=== PATIENT | female | born 1975 | race Caucasian/White ===

== ENCOUNTER 2017-09-15 10:52 | Observation (INO) | payer SELFPAY ==
--- NOTE | 2017-09-15 11:56 | PDOC ---
History of Present Illness - General Chief Complaint: Revisit, Lab Variance Stated Complaint: REVISIT/ LAB VARIANCE Time Seen by Provider: 09/15/17 11:46 - History of Present Illness Initial Comments: 09/15/17 12:25 The patient is a 42 year old female with a history of anemia and uterine fibroids who presents for evaluation of anemia. The patient reports visiting her PCP yesterday and had blood work done. She states that they called her today and told her to present to the ER for a blood transfusion due to anemia. The patient has had multiple transfusions in the past due to anemia. She states that she has very heavy menses due to her uterine fibroids with her LMP on 08/20 which was very heavy as per usual. She states that the last blood work she had done prior to yesterday was over 1 year ago when she was evaluated by her manager clinical informatics physician. She currently only complains of some mild generalized weakness and SOB with exertion, but denies any fevers, chills, chest pain, abdominal pain, or changes with urination or bowel movements. Past History - Past Medical History Allergies/Adverse Reactions: Allergies Allergy/AdvReac Type Severity Reaction Status Date / Time No Known Allergies Allergy Verified 09/15/17 11:02 Home Medications: Ambulatory Orders Ferrous Sulfate [Feosol] 325 mg PO BID #60 ud 03/25/16 Anemia: Yes COPD: No - Reproductive History Uterine Fibroids: Yes - Suicide/Smoking/Psychosocial Hx Smoking History: Never smoked Have you smoked in the past 12 months: No Hx Alcohol Use: Yes (SOCIAL) Drug/Substance Use Hx: No Substance Use Type: None Hx Substance Use Treatment: No Review of Systems - Review of Systems Comments:: 09/15/17 12:30 Constitutional: Generalized fatigue. No fevers, chills, malaise HEENT: No Rhinorrhea, nasal congestion, Cardiovascular: No chest pain, syncope, palpitations, lightheadedness Respiratory: SOB. No Cough, Hemoptysis, Gastrointestinal: No Abdominal pain, Nausea, Vomiting, Constipation, Diarrhea, Melena Genitourinary: No Dysuria, Frequency, Urgency, Hesitancy, Hematuria, Flank pain Musculoskeletal: No Myalgia, arthralgia Skin: No rashes, bruising, pallor Neurologic: No Headache, Dizziness, Numbness, or Tingling Psychiatric: No Hallucinations. No SI or HI *Physical Exam - Vital Signs Last Vital Signs Temp Pulse Resp BP Pulse Ox 99.1 F 81 20 109/65 98 09/15/17 10:58 09/15/17 10:58 09/15/17 10:58 09/15/17 10:58 09/15/17 10:58 - Physical Exam Comments: 09/15/17 12:30 General Appearance: Nourished. No Apparent Distress HEENT: EOMI, SOFÍA. No Pharyngeal Erythema, Tonsillar Exudate, Tonsillar Erythema Neck: No Cervical Lymphadenopathy Respiratory/Chest: Lungs Clear, Normal Breath Sounds. No Crackles, Rales, Rhonchi, Wheezing Cardiovascular: Regular Rhythm, Regular Rate. No Murmur, Gallops, Rubs Gastrointestinal/Abdominal: Normal Bowel Sounds, Soft. No Guarding, Rebound, Tenderness Musculoskeletal: No CVA Tenderness Extremity: Normal Capillary Refill Integumentary: Normal Color, Dry, Warm Neurologic: Fully Oriented, Alert, Normal Mood/Affect, Normal Response, ED Treatment Course - LABORATORY CBC & Chemistry Diagram: 09/15/17 12:09 09/15/17 12:09 Medical Decision Making - Medical Decision Making 09/15/17 12:31 The patient is a 42 year old female with a history of anemia and uterine fibroids who presents for evaluation of anemia. Given the patient's history of anemia due to uterine fibroids as well as recent heavy menses, it is likely the patient is anemic due to her heave menses. She is not complaining of any other symptoms besides mild generalized weakness and SOB with exertion and we have a good explanation for her anemia. We will obtain a cbc, cmp, type and screen, coags to evaluate here in the ED. We will continue to monitor and reassess. 09/15/17 13:24 CBC demonstrates a hgb of 6.2. CMP, UA, coags are unremarkable here in the ED. The patient will require admission for further management given her symptomatic anemia and hgb of 6.2. We will order 1 U of PRBC for transfusion and contact the hospitalist team for admission. 09/15/17 14:18 We discussed with the hospitalist team who accepted the patient for admission. *DC/Admit/Observation/Transfer Diagnosis at time of Disposition: Symptomatic anemia - Discharge Dispostion Condition at time of disposition: Stable Admit: Yes
[2017-09-15 12:21] LABS: BASOPHIL 1.8 % (0-2.0); EOSINOPHIL 1.1 % (0-4.5); MCHC 28.7 g/dl (32.0-36.0); MEAN CELL VOLUME 56.8 fl (80-96); MEAN PLT VOLUME 8.8 fl (7.5-11.1); NEUTROPHILS 64.2 % (42.8-82.8); PLATELET COUNT 363 K/MM3 (134-434); RDW 21.4 % (11.6-15.6); WHITE BLOOD COUNT 5.5 K/mm3 (4.0-10.0)
[2017-09-15 12:30] LABS: URINE APPEARANCE CLOUDY; URINE BILIRUBIN NEGATIVE (NEGATIVE); URINE BLOOD NEGATIVE (NEGATIVE); URINE COLOR YELLOW; URINE GLUCOSE (UA) NEGATIVE (NEGATIVE); URINE KETONE NEGATIVE (NEGATIVE); URINE NITRITE NEGATIVE (NEGATIVE); URINE UROBILINOGEN NEGATIVE mg/dL (0.2-1.0)
--- NOTE | 2017-09-15 12:32 | PDOC ---
Attending Attestation - Resident Resident Name: Channing Au - ED Attending Attestation I have performed the following: I have examined & evaluated the patient, The case was reviewed & discussed with the resident, I agree w/resident's findings & plan, Exceptions are as noted - HPI HPI: 09/15/17 13:22 42y F fibroids, anemia, presents with anemia. The pt had blood work done as an outpatient showing anemi with hbg of 6 and was told to come to [facility]. [facility] pt notes she has been feeling generally weak, especially when going up stairs with mild sob. The pt notes several transfusions inthe past. Pt denies any cp, abd pain, current vag bleeeding, any diarrhea/melena/bpr. Pt currently on iron. on exam pt in no distress abd soft cardiac exam shows regular rate, no m/r/g pulm exam clear to ascultation pt noted anemic to 6.[address] pt on observation status for transfusion under hospitalist service - Physicial Exam PE: 09/15/17 13:23 see above - Medical Decision Making 09/15/17 13:23 see above Heart Score/ECG Review - ECG Impressions Comment:: 09/15/17 13:24 Twelve-lead EKG was performed and reviewed by me. There is normal sinus rhythm with a normal rate. Rate of 72 The axis is normal. The intervals are normal. There is normal R wave progression There are no ST or T wave abnormalities. Impression: Normal twelve-lead EKG
[2017-09-15 12:37] LABS: URINE PROTEIN 1+ (NEGATIVE)
[2017-09-15 12:38] LABS: URINE BACTERIA RARE /hpf (NONE SEEN); URINE MUCUS RARE; URINE RBC 1; URINE WBC 11
[2017-09-15 12:40] LABS: INR 0.98 (0.82-1.09); PROTHROMBIN TIME (PATIENT) 11.1 SEC (9.98-11.88)
[2017-09-15 12:42] LABS: ACTIVATED PTT 26.3 SECONDS (26.9-34.4)
[2017-09-15 12:48] LABS: MCH 16.3 pg (25.7-33.7)
[2017-09-15 12:50] LABS: ALBUMIN 3.6 g/dl (3.4-5.0); ANION GAP 8 (8-16); BILIRUBIN,TOTAL 0.3 mg/dL (0.2-1.0); CALCIUM 8.3 mg/dL (8.5-10.1); CO2 22 mmol/L (21-32); CREATININE 0.6 mg/dL (0.55-1.02); GLUCOSE,RANDOM 102 mg/dL (74-106); SGOT/AST 24 U/L (15-37); SGPT/ALT 26 U/L (12-78); TOT PROT 7.2 g/dl (6.4-8.2)
[2017-09-15 12:51] LABS: ALK PHOS 57 U/L (45-117)
[2017-09-15 14:06] LABS: ANISOCYTOSIS 3+; HYPOCHROMIA 4+; MICROCYTOSIS 3+; TARGET CELLS 3+
--- NOTE | 2017-09-15 14:54 | HP ---
CHIEF COMPLAINT:weakness PCP:[facility]. HISTORY OF PRESENT ILLNESS: 42 yo F with significant PMHx of anemia 2/2 uterine fibroids who presents for evaluation of anemia. She had recent blood work done and recieved a call yesterday that she was anemic with Hgb of 6.0. She has been feeling weak and fatigued for the past week and also report dysnea on exertion. The patient has had multiple transfusions in the past due to anemia most recently March 2016. She last had her fibroids imaged by US in April of 2016. She reports having seen a SALES RESEARCH ANALYST but was told to continue with iron supplementation. She states that she has very heavy menses due to her uterine fibroids with her LMP on 08/20 which was very heavy, soaking >7 heavy pads/day. Denies any CP,GUZMAN, fevers, chills, chest pain, abdominal pain, or changes with urination or bowel movements. ER course was notable for: (1)CBC shows Hgb 6.2 (2)EKG shows NSR with RBB (3)Chest xray shows no acute pathology. Recent Travel:denies PAST MEDICAL HISTORY: uterine fibroids and symptomatic anemia. PAST SURGICAL HISTORY: tubal ligation. Social History: Smoking:never Alcohol:socially Drugs: denies Family History: Allergies No Known Allergies Allergy (Verified 09/15/17 11:02) HOME MEDICATIONS: Home Medications Medication Instructions Recorded Ferrous Sulfate [Feosol] 325 mg PO BID #60 ud 03/25/16 REVIEW OF SYSTEMS CONSTITUTIONAL: generalized weakness Absent: fever, chills, diaphoresis, , malaise, loss of appetite, weight change HEENT: Absent: rhinorrhea, nasal congestion, throat pain, throat swelling, difficulty swallowing, mouth swelling, ear pain, eye pain, visual changes CARDIOVASCULAR: Absent: chest pain, syncope, palpitations, irregular heart rate, lightheadedness , peripheral edema RESPIRATORY: dyspnea with exertion Absent: cough, shortness of breath, orthopnea, wheezing, stridor, hemoptysis GASTROINTESTINAL: Absent: abdominal pain, abdominal distension, nausea, vomiting, diarrhea, constipation, melena, hematochezia GENITOURINARY: Absent: dysuria, frequency, urgency, hesitancy, hematuria, flank pain, genital pain MUSCULOSKELETAL: Absent: myalgia, arthralgia, joint swelling, back pain, neck pain SKIN: Absent: rash, itching, pallor HEMATOLOGIC/IMMUNOLOGIC: Absent: easy bleeding, easy bruising, lymphadenopathy, frequent infections ENDOCRINE: Absent: unexplained weight gain, unexplained weight loss, heat intolerance, cold intolerance NEUROLOGIC: Absent: headache, focal weakness or paresthesias, dizziness, unsteady gait, seizure, mental status changes, bladder or bowel incontinence PSYCHIATRIC: Absent: anxiety, depression, suicidal or homicidal ideation, hallucinations. PHYSICAL EXAMINATION GENERAL: AAOx3, NAD HEAD: NC/AT EYES:PERRLA,EOMI, sclera anicteric, conjunctiva clear. No lid lag. EARS, NOSE, THROAT: dry mucous membranes. NECK: supple, No JVD LUNGS: CTAB. No wheezes, and no crackles. No accessory muscle use. HEART: RRR, normal S1 and S2 No M/G/R ABDOMEN: Soft, NT/ND, normoactive bowel sounds, no guarding, no rebound, no masses. No hepatomegaly or splenomegaly. MUSCULOSKELETAL: Normal range of motion at all joints. No bony deformities or tenderness. No CVA tenderness. UPPER EXTREMITIES: 2+ pulses, warm, well-perfused. No cyanosis. No clubbing. No peripheral edema. LOWER EXTREMITIES: 2+ pulses, warm, well-perfused. No calf tenderness. No peripheral edema. NEUROLOGICAL: Cranial nerves II-XII intact. Normal speech. PSYCHIATRIC: Cooperative. Good eye contact. Appropriate mood and affect. SKIN: Warm, dry, normal turgor, no rashes or lesions noted, normal capillary refill. ASSESSMENT/PLAN: 42 year old female with a history of anemia and uterine fibroids who presents for evaluation of anemia will be admitted to Med/surg for symptomatic anemia requiring multiple blood transfusions. Problem List - Problem (1) Symptomatic anemia Assessment/Plan: * Most likely secondary to chronic blood loss from fibroids. * Will order 2 units of PRBC's * Repeat CBC after second unit * Monitor for transfusion reaction or signs of overload. * Continue Ferrous sulfate supplementation. * Transvaginal US to assess fibroids. Visit type - Emergency Visit Emergency Visit: Yes ED Registration Date: 09/15/17 Care time: The patient presented to the Emergency Department on the above date and was hospitalized for further evaluation of their emergent condition. - New Patient This patient is new to me today: Yes Date on this admission: 09/15/17 - Critical Care Critical Care patient: No
--- NOTE | 2017-09-15 15:58 | PN ---
Teaching Attending Note Name of Resident: Manas Contreras ATTENDING PHYSICIAN STATEMENT I saw and evaluated the patient. I reviewed the resident's note and discussed the case with the resident. I agree with the resident's findings and plan as documented. SUBJECTIVE:42yo F with PMH fibroids and anemia was sent by PMD after routing labs showing anemia. Reports Hgb at 6. states that she has been feeling dyspnic on exertion and fatigued for the past few weeks. LMP 10/ and was heavier than usual using "many many" pads during the day and at least 2 ultra absorbent ones at night. no longer menstruating. was told she had fibroids that was not a surgical candidate. has not seen RETURNER since 04/2016. and had it last imaged at that time. denies CP, cough, fever, chills, N/V/C/D, orthopnea, pedal edema, melena, BRBPR or hemoptysis Never had colonoscopy OBJECTIVE: Last Vital Signs Temp Pulse Resp BP Pulse Ox 98.3 F 61 18 100/61 100 09/15/17 15:41 09/15/17 15:41 09/15/17 15:41 09/15/17 15:41 09/15/17 15:41 General NAD CV S1 S2 RRR no murmur/rub/gallop Lungs CTA B/L no wheezing/rales/rhonchi Abdomen +suprapubic tenderness no rebound or guarding, soft Extremities no pedal edema ASSESSMENT AND PLAN: 42yo F wtih PMH fibroids presented to the ER with shortness of breath and found to be anemic 1. Symptomatic anemia- medicine admission. likely due to menorrhagia. will transfuse 2 units PRBC and repeat CBC. TV u/s to evaluate fibroids. check iron studies. 2. DVT ppx- EAM. hold pharamcologic anticoagulation
[2017-09-15 19:40] VITALS: BMI 23.1
[2017-09-15 20:02] LABS: URINE LEUK ESTERASE Negative (NEGATIVE)
[2017-09-15] MEDS: FERROUS SO4 325 MG TABLET (FP) PO SCH (21:16)
[2017-09-16 07:24] LABS: BASOPHIL 1.5 % (0-2.0); EOSINOPHIL 2.1 % (0-4.5); MCHC 30.3 g/dl (32.0-36.0); MEAN CELL VOLUME 61.9 fl (80-96); MEAN PLT VOLUME 9.1 fl (7.5-11.1); NEUTROPHILS 63.2 % (42.8-82.8); PLATELET COUNT 348 K/MM3 (134-434); RDW 27.3 % (11.6-15.6); WHITE BLOOD COUNT 5.7 K/mm3 (4.0-10.0)
--- NOTE | 2017-09-16 07:27 | PN ---
Physical Exam: SUBJECTIVE: Patient seen and examined. Did well last night. No events. VSS. s/p 2u PRBC. Denies fevers, chills, CP, SOB. States she was seen by her nitrogen operator last year, who stated that she "did not need" surgery because her fibroids were not large enough for surgery. OBJECTIVE: Vital Signs Period Temp Pulse Resp BP Sys/Parikh Pulse Ox Last 24 Hr 98.1 F-98.5 F 61-78 16-21 100-109/54-61 96-100 GEN: AAOx3, NAD, Lying comfortably HEENT: PERRLA, EOMi CV: S1, S2, RRR, no murmur LUNG: CTABL ABD: Soft, TTP to suprapubic region, ND MSK: No edema, no erythema NEURO: Sensation and MSK intact, 5/5 throughout Laboratory Results - last 24 hr 09/15/17 20:51 Ferritin 1.849 L Active Medications Generic Name Dose Route Start Last Admin Trade Name Freq PRN Reason Stop Dose Admin Ferrous Sulfate 325 mg 09/15/17 22:00 09/15/17 21:16 Feosol - PO 325 mg BID FREEMAN Administration ASSESSMENT/PLAN: 42yo F wtih PMH of anemia 2/2 uterine fibroids, multiple blood transfusions in past, presented to her PMD w/ SOB and fatigue, sent to the ER due to Hgb 6.2 # Symptomatic Anemia Improved to Hgb 8.5 after 2u PRBC, 2/2 menorrhagia from uterine fibroids, not menstruating now, s/p 2u PRBC, transvaginal U/S to evaluate, has low ferritin even on Fe supplements # FEN no IVF, elec wnl, regular diet # PPx SCDs, hold pharmacological anticoag, no GI needed, PT not needed # Dispo Can d/c today, needs HEREDITARY CANCER PROGRAM COORDINATOR outpatient, needs CBC and iron panel as outpatient d/w Dr Tati Cosby MD - pGY1 Internal Medicine Visit type - Emergency Visit Emergency Visit: No - New Patient This patient is new to me today: No - Critical Care Critical Care patient: No - Discharge Referral Referred to [facility] Med P.C.: No
[2017-09-16 07:40] LABS: MCH 18.8 pg (25.7-33.7)
[2017-09-16 08:07] LABS: ALBUMIN 3.2 g/dl (3.4-5.0); ANION GAP 10 (8-16); BILIRUBIN,TOTAL 1.1 mg/dL (0.2-1.0); CALCIUM 7.5 mg/dL (8.5-10.1); CO2 21 mmol/L (21-32); CREATININE 0.6 mg/dL (0.55-1.02); GLUCOSE,RANDOM 82 mg/dL (74-106); MAGNESIUM 2.2 mg/dL (1.8-2.4); SGOT/AST 17 U/L (15-37); SGPT/ALT 20 U/L (12-78); TOT PROT 6.6 g/dl (6.4-8.2)
[2017-09-16 08:08] LABS: ALK PHOS 55 U/L (45-117)
[2017-09-16] MEDS: FERROUS SO4 325 MG TABLET (FP) PO SCH (09:18)
--- NOTE | 2017-09-16 11:56 | DS ---
Physical Exam: SUBJECTIVE: Patient seen and examined. Did well last night. No events. VSS. s/p 2u PRBC. Denies fevers, chills, CP, SOB. OBJECTIVE: Vital Signs Period Temp Pulse Resp BP Sys/Parikh Pulse Ox Last 24 Hr 98.1 F-98.5 F 60-78 16-21 95-109/54-61 96-100 PHYSICAL EXAM GEN: AAOx3, NAD, Lying comfortably HEENT: PERRLA, EOMi CV: S1, S2, RRR, no murmur LUNG: CTABL ABD: Soft, TTP in suprapubic region, nondistended MSK: No edema, no erythema NEURO: Sensation and MSK intact, 5/5 throughout LABS Laboratory Results - last 24 hr 09/15/17 09/16/17 09/16/17 20:51 06:10 06:10 WBC 5.7 RBC 4.55 Hgb 8.5 L D Hct 28.2 L D MCV 61.9 L D MCH 18.8 L MCHC 30.3 L RDW 27.3 H Plt Count 348 MPV 9.1 Neutrophils % 63.2 Lymphocytes % 19.1 Monocytes % 14.1 H Eosinophils % 2.1 D Basophils % 1.5 Sodium 140 Potassium 3.9 Chloride 109 H Carbon Dioxide 21 Anion Gap 10 BUN 5 L D Creatinine 0.6 Creat Clearance w eGFR > 60 Random Glucose 82 Calcium 7.5 L Phosphorus 3.0 Magnesium 2.2 Ferritin 1.849 L Total Bilirubin 1.1 H D AST 17 D ALT 20 D Alkaline Phosphatase 55 Total Protein 6.6 Albumin 3.2 L HOSPITAL COURSE: Date of Admission:09/15/17 Date of Discharge: 09/16/17 Briefly, Ms. Mobley is a 42 yo F with significant PMHx of anemia 2/2 uterine fibroids who presents for evaluation of anemia. She had recent blood work done and received a call that she was anemic with Hgb of 6.2. She had been feeling weak and fatigued for the past week and also report dysnea on exertion. The patient has had multiple transfusions in the past due to anemia most recently March 2016. She stated that she has very heavy menses due to her uterine fibroids with her LMP on 08/20 which was very heavy, soaking >7 heavy pads/day. In the hospital, she was given 2 units PRBC which improved her hemoglobin to 8.5, and her symptoms improved. She is not menstruating at the moment. Transvaginal ultrasound shows fibroids (largest 4x3 cm), with normal ovarian flow. Iron studies show low ferritin, but she needs a full iron panel and CBC as an outpatient since she has just received blood. She will need OBGYN outpatient referral. She agrees with the plan of discharge to home today. Minutes to complete discharge: 45 Discharge Summary Reason For Visit: ANEMIA Current Active Problems Anemia (Acute) Symptomatic anemia (Acute) Transfusion of blood during current hospitalization (Acute) Condition: Improved - Instructions Diet, Activity, Other Instructions: RECOMMENDATIONS: - You were admitted because your hemoglobin was low, we gave you blood transfusions, an your hemoglobin has improved - You have fibroids in your uterus, we will give you a copy of your ultrasound, take it to your primary care doctor - You will need to see an Obstetrics-Correspondence Specialist, please obtain a referral from your PCP - Continue to take your iron pills - Follow up with your primary care doctor this week. You should have your blood counts checked and iron studies performed NEW MEDICATIONS: - None FOLLOWUP: - Valeriy Drake NP (Primary care provider) - please obtain a full iron panel and a referral for an OBGYN Referrals: Valeriy Drake [Nurse Practitioner] - 1 Week (Please give OBGYN Referral. Please do full iron panel workup Patient has been given results of transvaginal U/S) Disposition: HOME - Home Medications Comprehensive Discharge Medication List: Ambulatory Orders Ferrous Sulfate [Feosol] 325 mg PO BID #60 ud 03/25/16 This patient is new to me today: No Emergency Visit: No Critical Care patient: No - Discharge Referral Referred to [facility] Med P.C.: No
--- NOTE | 2017-09-16 13:14 | PN ---
Teaching Attending Note Name of Resident: Megan Cosby ATTENDING PHYSICIAN STATEMENT I saw and evaluated the patient. I reviewed the resident's note and discussed the case with the resident. I agree with the resident's findings and plan as documented. SUBJECTIVE:asymptomatic. lethargy and dyspnea have resolved. deneis Cp, SOb, fever, chills, N/V/C/D OBJECTIVE: Last Vital Signs Temp Pulse Resp BP Pulse Ox 98.4 F 62 18 102/60 100 09/16/17 07:55 09/16/17 09:00 09/16/17 09:00 09/16/17 09:00 09/16/17 09:00 General NAD Abdomen suprapubic tenderness +enlarged uterus no rebound or guarding. ASSESSMENT AND PLAN: 42yo F wtih [facility] fibroids presented to the ER with shortness of breath and found to be anemic 1. Symptomatic anemia-s/p 2 units PRBC with resolution of symptoms. U/s showing mutliple fibroids with largest 3.5x4.5. encouraged to have iron studies done by PMD and repeat cbc in 1 week. encouraged to f/u with STRIP POLISHER for fibroids as they are painful. 2. DVT ppx- EAM. hold pharamcologic anticoagulation 3. d/c home
[2017-09-16 15:05] VITALS: BP 102/64; PULSE 60; TEMP 97.8
[2017-09-17 06:06] LABS: SERUM IRON 10 ug/dL (27-159); TOTAL IRON BINDING CAPACITY 503 ug/dL (250-450); UIBC 493 ug/dL (131-425)
--- NOTE | 2017-09-17 07:40 | EKG ---
Test Reason : Blood Pressure : / mmHG Vent. Rate : 072 BPM Atrial Rate : 072 BPM P-R Int : 152 ms QRS Dur : 088 ms QT Int : 414 ms P-R-T Axes : 014 055 029 degrees QTc Int : 453 ms NORMAL SINUS RHYTHM NORMAL ECG WHEN COMPARED WITH ECG OF 23-MAR-2016 13:52, NO SIGNIFICANT CHANGE WAS FOUND Confirmed by IRAIS PACHECO MD ([id number]) on 09/17/2017 7:40:19 AM Referred By: Confirmed By:IARIS PACHECO MD
== END 2017-09-16 16:30 | disposition home or self-care (01) ==
LOC: JER 10:52 → UNDOADMOB 14:19 → INTOOBSV 14:19 → JERBED 14:19 → J6S 16:42 → JERBED 16:42 → J6S 09-16 15:37 → JERBED 09-16 15:37
PROVIDERS: ADMIT Internal Medicine; ATTEND Internal Medicine
PROC: 30233N1 Transfusion of Nonautologous Red Blood Cells into Peripheral Vein, Percutaneous Approach (ICD-10-PCS; principal; 2017-09-16)
DX: D64.9 Anemia, unspecified (principal); D25.9 Leiomyoma of uterus, unspecified
CPT/HCPCS: 36415; 36430; 76830-TC; 80053; 81003; 81015; 82728; 83540; 83550; 83735; 84100; 84703; 85025; 85610; 85730; 86850; 86870; 86900; 86901; 86902; 86922; 93005; 93010; 99284-25; G0378; P9038; P9058

== ENCOUNTER 2019-02-21 04:50 | Emergency (ER) | payer SELFPAY ==
--- NOTE | 2019-02-21 05:13 | PDOC ---
History of Present Illness - General Stated Complaint: ABD PAIN Time Seen by Provider: 02/21/19 05:13 - History of Present Illness Initial Comments: 43 year old female with PMH of suspected tubal ligation (unable to recall her reproductive organ intervention) presenting with nausea and lower abdominal pain for the past three days. Patient states that she has had slightly worsening abdominal pain over hte past three days and worsening nausea. Denies ny fevers, chills, vomiting, diarrhea, chest pain, SOB , or other symptoms. 02/21/19 06:31 Past History - Past Medical History Allergies/Adverse Reactions: Allergies Allergy/AdvReac Type Severity Reaction Status Date / Time No Known Allergies Allergy Verified 02/21/19 06:42 Home Medications: Ambulatory Orders Ferrous Sulfate [Feosol] 325 mg PO BID #60 ud 03/25/16 Anemia: Yes Cancer: No CVA: No COPD: No HTN: No - Reproductive History Uterine Fibroids: Yes - Suicide/Smoking/Psychosocial Hx Smoking History: Never smoked Have you smoked in the past 12 months: No Hx Alcohol Use: Yes (SOCIAL) Drug/Substance Use Hx: No Substance Use Type: None Hx Substance Use Treatment: No Review of Systems - Review of Systems Constitutional: No: Chills, Diaphoresis, Fever HEENTM: No: Eye Pain, Blurred Vision, Tearing Respiratory: No: Cough, Orthopnea, Shortness of Breath Cardiac (ROS): No: Chest Pain, Edema, Irregular Heart Rate ABD/GI: Yes: Nausea. No: Diarrhea, Vomiting : No: Burning, Dysuria, Discharge Musculoskeletal: No: Back Pain, Gout, Joint Pain Integumentary: No: Bruising, Erythema, Flushing, Lesions, Lumps Neurological: No: Headache, Numbness, Paresthesia Hematologic/Lymphatic: No: Anemia, Blood Clots, Easy Bleeding *Physical Exam - Physical Exam General Appearance: Yes: Nourished, Appropriately Dressed. No: Apparent Distress HEENT: positive: EOMI, SOFÍA, Normal ENT Inspection, Normal Voice Neck: positive: Trachea midline, Normal Thyroid, Supple. negative: Tender, Rigid Respiratory/Chest: positive: Lungs Clear, Normal Breath Sounds. negative: Chest Tender, Respiratory Distress, Accessory Muscle Use Cardiovascular: positive: Regular Rhythm, Regular Rate Gastrointestinal/Abdominal: positive: Normal Bowel Sounds, Tender (right lower quadrant fullness and ttp), Flat (rlq fullness and swelling), Soft, Mass (rlq) Lymphatic: negative: Adenopathy, Tenderness Musculoskeletal: positive: Normal Inspection. negative: Decreased Range of Motion Extremity: positive: Normal Capillary Refill, Normal Inspection, Normal Range of Motion. negative: Tender Integumentary: positive: Normal Color, Dry, Warm Neurologic: positive: Fully Oriented, Alert, Normal Mood/Affect, Normal Response , Motor Strength 03/15 ED Treatment Course - LABORATORY CBC & Chemistry Diagram: 02/21/19 05:52 02/21/19 05:52 Medical Decision Making - Medical Decision Making 43 year old female with no significant PMH presenting with RLQ tenderness and nausea. The major concern for this pathology is intrabdominal abscess vs. large ovarian pathology (including ovarian carcinoma). Labs WNL, UA negative and CT pending on sign out to oncoming team. 02/21/19 06:45 *DC/Admit/Observation/Transfer Diagnosis at time of Disposition: Nausea Abdominal pain Qualifiers: Abdominal location: right lower quadrant Qualified Code(s): R10.31 - Right lower quadrant pain - Discharge Dispostion Condition at time of disposition: Stable Decision to Admit order: No - Referrals - Patient Instructions - Post Discharge Activity
--- NOTE | 2019-02-21 05:19 | PDOC ---
Attending Attestation - Resident Resident Name: Manuela Fiore - ED Attending Attestation I have performed the following: I have examined & evaluated the patient, The case was reviewed & discussed with the resident, I agree w/resident's findings & plan - HPI HPI: 02/21/19 07:09 pt comes with RLQ pain - Physicial Exam PE: 02/22/19 00:50 agree with resident exam - Medical Decision Making 02/21/19 07:09 Pt has labs and imaging ordered. Awaiting all results. Pt will be signed out to the day ER doc.
[2019-02-21] MEDS ORDERED: ACETAMINOPHEN 1000 MG/100 ML VIAL (NON FORMULARY) IVPB ONE (05:41)
[2019-02-21 05:43] VITALS: BMI 25.4
[2019-02-21] MEDS ORDERED: ACETAMINOPHEN INJECTION 100 ML IVPB ONE (05:50)
[2019-02-21 06:03] LABS: EOS % 1.8 % (0-4.5); HEMATOCRIT 28.7 % (32.4-45.2); HEMOGLOBIN 8.9 GM/dL (10.7-15.3); LYMPH % 33.8 % (8-40); MCH 20.9 pg (25.7-33.7); MEAN CELL VOLUME 67.4 fl (80-96); MEAN PLT VOLUME 8.1 fl (7.5-11.1); MONO % 8.5 % (3.8-10.2); NEUT % 53.9 % (42.8-82.8); PLATELET COUNT 251 K/MM3 (134-434); RBC 4.26 M/mm3 (3.60-5.2); RDW 23.4 % (11.6-15.6); WHITE BLOOD COUNT 3.2 K/mm3 (4.0-10.0)
[2019-02-21 06:08] LABS: HCG,QUALITATIVE URINE Negative; PH,URINE 5.5 (5.0-8.0); URINE APPEARANCE CLEAR; URINE BILIRUBIN NEGATIVE (NEGATIVE); URINE COLOR YELLOW; URINE GLUCOSE (UA) NEGATIVE (NEGATIVE); URINE KETONE NEGATIVE (NEGATIVE); URINE LEUK ESTERASE TRACE (NEGATIVE); URINE NITRITE NEGATIVE (NEGATIVE); URINE PROTEIN NEGATIVE (NEGATIVE); URINE UROBILINOGEN 0.2 mg/dL (0.2-1.0)
[2019-02-21 06:15] LABS: INR 0.89 (0.83-1.09); PROTHROMBIN TIME (PATIENT) 10.5 SEC (9.7-13.0)
[2019-02-21 06:24] LABS: EPI CELLS 5 /HPF (0-5/HPF); URINE RBC 4 /hpf (0-4); URINE WBC 4 /hpf (0-5)
[2019-02-21 06:25] LABS: URINE BACTERIA FEW /hpf (NEGATIVE); URINE CASTS NONE SEEN /hpf (0-8)
[2019-02-21 06:31] LABS: ALBUMIN 3.7 g/dl (3.4-5.0); ALK PHOS 104 U/L (45-117); AMYLASE 127 U/L (25-115); ANION GAP 7 MMOL/L (8-16); BILIRUBIN,TOTAL < 0.1 mg/dL (0.2-1); BLOOD UREA NITROGEN 4 mg/dL (7-18); CALCIUM 7.5 mg/dL (8.5-10.1); CHLORIDE 110 mmol/L (98-107); CO2 27 mmol/L (21-32); CREATININE 0.5 mg/dL (0.55-1.3); GLUCOSE,RANDOM 106 mg/dL (74-106); LIPASE 274 U/L (73-393); SGOT/AST 33 U/L (15-37); SGPT/ALT 25 U/L (13-61); SODIUM 144 mmol/L (136-145); TOT PROT 8.1 g/dl (6.4-8.2)
[2019-02-21 08:23] LABS: ANISOCYTOSIS 1+; PLATELET ESTIMATE NORMAL
--- NOTE | 2019-02-21 09:24 | PDOC ---
*Physical Exam - Vital Signs Last Vital Signs Temp Pulse Resp BP Pulse Ox 97.9 F 92 H 17 134/94 100 02/21/19 05:36 02/21/19 05:36 02/21/19 05:36 02/21/19 05:36 02/21/19 05:36 - Physical Exam General Appearance: Yes: Nourished Respiratory/Chest: positive: Lungs Clear, Normal Breath Sounds Cardiovascular: positive: Regular Rhythm, Regular Rate, S1, S2 Gastrointestinal/Abdominal: positive: Tender (rlq ttp ). negative: Flat, Soft Extremity: positive: Normal Capillary Refill Integumentary: positive: Normal Color, Dry, Warm ED Treatment Course - LABORATORY CBC & Chemistry Diagram: 02/21/19 05:52 02/21/19 05:52 - ADDITIONAL ORDERS Additional order review: Laboratory Results 02/21/19 02/21/19 02/21/19 05:52 05:52 05:52 PT with INR INR Sodium 144 Potassium 4.0 Chloride 110 H Carbon Dioxide 27 Anion Gap 7 L BUN 4 L Creatinine 0.5 L Creat Clearance w eGFR 133.42 Random Glucose 106 Calcium 7.5 L Total Bilirubin < 0.1 L AST 33 ALT 25 Alkaline Phosphatase 104 Total Protein 8.1 Albumin 3.7 Total Amylase 127 H Lipase 274 Urine Color Yellow Urine Appearance Clear Urine pH 5.5 Ur Specific [place] 1.005 L Urine Protein Negative Urine Glucose (UA) Negative Urine Ketones Negative Urine Blood 3+ H Urine Nitrite Negative Urine Bilirubin Negative Urine Urobilinogen 0.2 Ur Leukocyte Esterase Trace Urine WBC (Auto) 4 Urine RBC (Auto) 4 Urine Casts (Auto) None seen U Epithel Cells (Auto) 5 Urine Bacteria (Auto) Few Urine HCG, Qual Negative Blood Type O POSITIVE Antibody Screen Positive 02/21/19 05:52 PT with INR 10.50 INR 0.89 Sodium Potassium Chloride Carbon Dioxide Anion Gap BUN Creatinine Creat Clearance w eGFR Random Glucose Calcium Total Bilirubin AST ALT Alkaline Phosphatase Total Protein Albumin Total Amylase Lipase Urine Color Urine Appearance Urine pH Ur Specific [place] Urine Protein Urine Glucose (UA) Urine Ketones Urine Blood Urine Nitrite Urine Bilirubin Urine Urobilinogen Ur Leukocyte Esterase Urine WBC (Auto) Urine RBC (Auto) Urine Casts (Auto) U Epithel Cells (Auto) Urine Bacteria (Auto) Urine HCG, Qual Blood Type Antibody Screen 02/21/19 05:52 RBC 4.26 MCV 67.4 L MCHC 31.0 L RDW 23.4 H MPV 8.1 D Neutrophils % 53.9 Lymphocytes % 33.8 D Monocytes % 8.5 Eosinophils % 1.8 Basophils % 2.0 - RADIOLOGY Radiology Studies Ordered: Category Date Time Status TRANSVAGINAL ULTRASOUND US [US] Stat Ultrasound 02/21/19 08:07 Ordered - Medications Given in the ED: ED Medications Discontinued Medications Generic Name Dose Route Start Last Admin Trade Name Anitra PRN Reason Stop Dose Admin Acetaminophen 1,000 mg 02/21/19 05:41 02/21/19 06:04 Ofirmev Injection - IVPB 02/21/19 05:42 1,000 mg ONCE ONE Administration Medical Decision Making - Medical Decision Making 02/21/19 09:22 43 yo F with /ho fibroids, here with c/o rlq pain since day prior. c/o nausea when having pain, no vomiting. no f/c denies change to bowels. no urinary complaints. was signed out to me by overnight staff, pending ct results. ct results with fibroid uterus, otherwise unremarkable. on repeat exam pt states she feels better, however ttp rlq, no rebound no guarding. will obtain tvus r/o ovarian pathology/ torsions. *DC/Admit/Observation/Transfer Diagnosis at time of Disposition: Nausea Abdominal pain Qualifiers: Abdominal location: right lower quadrant Qualified Code(s): R10.31 - Right lower quadrant pain - Discharge Dispostion Condition at time of disposition: Stable - Referrals - Patient Instructions - Post Discharge Activity
[2019-02-21] MEDS ORDERED: KETOROLAC TROMETHAMINE 30 MG/1 ML VIAL IVPUSH ONE (09:26)
[2019-02-21] MEDS ORDERED: KETOROLAC TROMETHAMINE 30 MG/1 ML VIAL ONE (09:54)
--- NOTE | 2019-02-21 10:04 | PDOC ---
*Physical Exam - Vital Signs Last Vital Signs Temp Pulse Resp BP Pulse Ox 97.9 F 92 H 17 134/94 100 02/21/19 05:36 02/21/19 05:36 02/21/19 05:36 02/21/19 05:36 02/21/19 05:36 - Physical Exam General Appearance: Yes: Nourished, Appropriately Dressed. No: Apparent Distress HEENT: positive: Normal ENT Inspection, Normal Voice Neck: positive: Supple Respiratory/Chest: positive: Lungs Clear Cardiovascular: positive: Regular Rhythm, Regular Rate Gastrointestinal/Abdominal: positive: Tender (rlq) Musculoskeletal: positive: Normal Inspection Extremity: positive: Normal Capillary Refill, Normal Inspection, Normal Range of Motion Integumentary: positive: Normal Color, Dry, Warm Neurologic: positive: Fully Oriented, Alert, Normal Mood/Affect ED Treatment Course - LABORATORY CBC & Chemistry Diagram: 02/21/19 05:52 02/21/19 05:52 - ADDITIONAL ORDERS Additional order review: Laboratory Results 02/21/19 02/21/19 02/21/19 05:52 05:52 05:52 PT with INR INR Sodium 144 Potassium 4.0 Chloride 110 H Carbon Dioxide 27 Anion Gap 7 L BUN 4 L Creatinine 0.5 L Creat Clearance w eGFR 133.42 Random Glucose 106 Calcium 7.5 L Total Bilirubin < 0.1 L AST 33 ALT 25 Alkaline Phosphatase 104 Total Protein 8.1 Albumin 3.7 Total Amylase 127 H Lipase 274 Urine Color Yellow Urine Appearance Clear Urine pH 5.5 Ur Specific [place] 1.005 L Urine Protein Negative Urine Glucose (UA) Negative Urine Ketones Negative Urine Blood 3+ H Urine Nitrite Negative Urine Bilirubin Negative Urine Urobilinogen 0.2 Ur Leukocyte Esterase Trace Urine WBC (Auto) 4 Urine RBC (Auto) 4 Urine Casts (Auto) None seen U Epithel Cells (Auto) 5 Urine Bacteria (Auto) Few Urine HCG, Qual Negative Blood Type O POSITIVE Antibody Screen Positive Antibody Identification No Result Required. Antigen Identification No Result Required. 02/21/19 05:52 PT with INR 10.50 INR 0.89 Sodium Potassium Chloride Carbon Dioxide Anion Gap BUN Creatinine Creat Clearance w eGFR Random Glucose Calcium Total Bilirubin AST ALT Alkaline Phosphatase Total Protein Albumin Total Amylase Lipase Urine Color Urine Appearance Urine pH Ur Specific [place] Urine Protein Urine Glucose (UA) Urine Ketones Urine Blood Urine Nitrite Urine Bilirubin Urine Urobilinogen Ur Leukocyte Esterase Urine WBC (Auto) Urine RBC (Auto) Urine Casts (Auto) U Epithel Cells (Auto) Urine Bacteria (Auto) Urine HCG, Qual Blood Type Antibody Screen Antibody Identification Antigen Identification 02/21/19 05:52 RBC 4.26 MCV 67.4 L MCHC 31.0 L RDW 23.4 H MPV 8.1 D Neutrophils % 53.9 Lymphocytes % 33.8 D Monocytes % 8.5 Eosinophils % 1.8 Basophils % 2.0 - RADIOLOGY Radiograph Interpretation: CTAP: Abdomen and pelvis CT with contrast CLINICAL INFORMATION: evaluate for appendicitis Multiplanar imaging was performed following the intravenous administration of nonionic contrast. As requested enteric contrast was not administered. The appendix appears unremarkable. No evidence of pneumoperitoneum , abscess, free intraperitoneal fluid or bowel obstruction. There is diffuse fatty infiltration of the liver. The spleen, pancreas, gallbladder, adrenal glands and kidneys demonstrate no discrete abnormality. There is no aortic aneurysm. No obvious lymphadenopathy is noted. There is no gross noncontrast small bowel pathology. Multiple uterine leiomyomas are noted with resultant extrinsic indentation upon the urinary bladder. There is no CT evidence of adnexal pathology. The visualized osseous structures demonstrate no obvious acute abnormality. IMPRESSION: No CT evidence of acute appendicitis. Fibroid uterus. Diffuse hepatic steatosis. Small umbilical hernia containing fat only TVUS: Transvaginal ultrasound CLINICAL INFORMATION: right lower quadrant pain The ovaries appear unremarkable. No Doppler evidence of ovarian torsion, sensitivity 70%. Multiple uterine leiomyomas are noted the most prominent measuring approximately 4.9 cm in diameter. Overall uterine size is approximately 12.7 x 10 x 8 cm. Endometrial thickness is 0.7 cm. No free intraperitoneal fluid is seen. IMPRESSION: Fibroid uterus. The ovaries demonstrate no discrete abnormality. - Medications Given in the ED: ED Medications Discontinued Medications Generic Name Dose Route Start Last Admin Trade Name Freq PRN Reason Stop Dose Admin Acetaminophen 1,000 mg 02/21/19 05:41 02/21/19 06:04 Ofirmev Injection - IVPB 02/21/19 05:42 1,000 mg ONCE ONE Administration Medical Decision Making - Medical Decision Making Patient signed out to me from the night team pending CTAP, TVUS, and further disposition. CTAP: Enlarged fibroid uterus TVUS: Fibroid uterus. No ovarian pathology identified. - Patient's problems are likely related to fibroids. Will give NSAIDsfor analgesia. - Patient feels better after toradol analgesia. Will DC with [facility] follow up. *DC/Admit/Observation/Transfer Diagnosis at time of Disposition: Nausea, Fibroids Abdominal pain Qualifiers: Abdominal location: right lower quadrant Qualified Code(s): R10.31 - Right lower quadrant pain - Discharge Dispostion Disposition: HOME Condition at time of disposition: Stable Decision to Admit order: No - Referrals Referrals: Andrei Teresa MD [Staff Physician] - - Patient Instructions Printed Discharge Instructions: DI for Uterine Fibroids Additional Instructions: You came into the ER with abdominal pain. We did a cat scan and an ultrasound which showed you have large fibroids in your uterus which are likely the source of your vaginal bleeding and discomfort. Please make sure to call up a powder core tester and make an appointment in the next 3 to 5 days. We have attached the number of a powder core tester - Dr. Teresa if you do not already have one. Take motrin/ibuprofen/advil as needed for pain control. Come back to the ER immediately if your pain worsens or you have any other new or worsening concerns. Thank you for coming to the [facility] ER. We hope you feel better soon! Print Language: ANDORRAN - Post Discharge Activity
[2019-02-21 11:09] VITALS: BP 117/79; PULSE 119; TEMP 99.2
== END 2019-02-21 11:10 | disposition home or self-care (01) ==
LOC: JER 04:50
PROC: 3E0333Z Introduction of Anti-inflammatory into Peripheral Vein, Percutaneous Approach (ICD-10-PCS; principal; 2019-02-21)
PROC: 3E033NZ Introduction of Analgesics, Hypnotics, Sedatives into Peripheral Vein, Percutaneous Approach (ICD-10-PCS; 2019-02-21)
DX: D25.9 Leiomyoma of uterus, unspecified (principal)
CPT/HCPCS: 36415; 74177-TC; 76830-TC; 80053; 81003; 82150; 83690; 84703; 85025; 85610; 86850; 86870; 86900; 86901; 86902; 99282-25; J0131

== ENCOUNTER 2021-11-18 23:03 | Inpatient (IN) | payer OTHER ==
[2021-11-19] MEDS ORDERED: SODIUM CHLORIDE 0.9% 500 ML INFUS.BAG IV ONE ×3 (01:09→04:46)
[2021-11-19 03:27] LABS: BASO % 0.1 % (0-2.0); HEMATOCRIT 33.3 % (32.4-45.2); HEMOGLOBIN 11.7 GM/dL (10.7-15.3); LYMPH % 4.6 % (8-40); MCH 30.5 pg (25.7-33.7); MCHC 35.1 g/dl (32.0-36.0); MEAN PLT VOLUME 9.1 fl (7.5-11.1); MONO % 7.6 % (3.8-10.2); NEUT % 87.7 % (42.8-82.8); PLATELET COUNT 133 10^3/uL (134-434); RBC 3.82 M/mm3 (3.60-5.2); RDW 17.4 % (11.6-15.6); WHITE BLOOD COUNT 10.4 K/mm3 (4.0-10.0)
[2021-11-19 03:56] LABS: CHLORIDE 85 mmol/L (98-107); SODIUM 124 mmol/L (136-145)
[2021-11-19 03:59] LABS: ALBUMIN 3.6 g/dl (3.4-5.0); ANION GAP 12 MMOL/L (8-16); BLOOD UREA NITROGEN 11.1 mg/dL (7-18); CO2 27 mmol/L (21-32); GLUCOSE,RANDOM 115 mg/dL (74-106)
[2021-11-19 04:02] LABS: CREATININE 1.5 mg/dL (0.55-1.3); SGOT/AST 136 U/L (15-37); SGPT/ALT 61 U/L (13-61)
[2021-11-19 04:03] LABS: BILIRUBIN,TOTAL 0.6 mg/dL (0.2-1); LDH 420 U/L (84-246)
[2021-11-19 04:04] LABS: TOT PROT 7.3 g/dl (6.4-8.2)
[2021-11-19 04:05] LABS: ALK PHOS 110 U/L (45-117)
[2021-11-19] MEDS ORDERED: LORazepam 1 MG TABLET PO PRN (08:58)
[2021-11-19] MEDS ORDERED: SODIUM CHLORIDE 1,000 ML IV SCH ×2 (09:00→10:22)
[2021-11-19] MEDS ORDERED: THIAMINE HCL 100 MG TABLET (FP) ONE (10:37)
[2021-11-19] MEDS ORDERED: LORazepam 1 MG TABLET ONE ×3 (10:38→22:38)
[2021-11-19] MEDS ORDERED: FOLIC ACID 1 MG TABLET (FP) ONE (10:38)
[2021-11-19 10:45] LABS: LIPASE 781 U/L (73-393)
[2021-11-19] MEDS: FOLIC ACID 1 MG TABLET (FP) PO SCH (10:58)
[2021-11-19] MEDS: THIAMINE HCL 200 MG/2 ML VIAL IVPB SCH (10:58)
[2021-11-19] MEDS: LORazepam 1 MG TABLET PO SCH ×3 (10:59→22:41)
[2021-11-19 17:59] LABS: CHLORIDE 101 mmol/L (98-107); SODIUM 137 mmol/L (136-145)
[2021-11-19 18:01] LABS: CALCIUM 8.2 mg/dL (8.5-10.1)
[2021-11-19 18:02] LABS: BLOOD UREA NITROGEN 9.6 mg/dL (7-18); CO2 23 mmol/L (21-32); GLUCOSE,RANDOM 89 mg/dL (74-106)
[2021-11-19 18:13] LABS: ANION GAP 12 MMOL/L (8-16)
[2021-11-19] MEDS ORDERED: POTASSIUM CHLORIDE TABS 20 MEQ TABLET.ER (FP) PO ONE ×2 (18:46→20:13)
[2021-11-19] MEDS ORDERED: DESMOPRESSIN ACETATE 4 MCG/ML AMP IVPB ONE (18:48)
[2021-11-19] MEDS ORDERED: DEXTROSE 5%-WATER - 1,000 ML IV SCH (19:00)
[2021-11-19] MEDS ORDERED: KCL 10 MEQ IVPB 10 MEQ/100 ML INFUS.BAG IVPB ONE (20:13)
[2021-11-19] MEDS: KCL 10 MEQ IVPB 10 MEQ/100 ML INFUS.BAG IVPB SCH ×2 (20:31→21:48)
[2021-11-20] MEDS ORDERED: LORazepam 1 MG TABLET ONE (05:24)
[2021-11-20] MEDS: LORazepam 1 MG TABLET PO SCH ×4 (05:44→23:42)
[2021-11-20 07:41] LABS: BASO % 0.3 % (0-2.0); EOS % 0.5 % (0-4.5); HEMATOCRIT 30.6 % (32.4-45.2); HEMOGLOBIN 10.2 GM/dL (10.7-15.3); LYMPH % 6.3 % (8-40); MCH 29.8 pg (25.7-33.7); MCHC 33.2 g/dl (32.0-36.0); MEAN CELL VOLUME 89.9 fl (80-96); MEAN PLT VOLUME 9.4 fl (7.5-11.1); MONO % 8.5 % (3.8-10.2); NEUT % 84.4 % (42.8-82.8); PLATELET COUNT 118 10^3/uL (134-434); RBC 3.41 M/mm3 (3.60-5.2); RDW 17.5 % (11.6-15.6)
[2021-11-20 07:48] LABS: INR 0.88 (0.83-1.09); PROTHROMBIN TIME (PATIENT) 10.1 SEC (9.7-13.0)
[2021-11-20 07:49] LABS: ACTIVATED PTT 24.4 SECONDS (25.2-36.5)
[2021-11-20 08:03] LABS: CHLORIDE 100 mmol/L (98-107); SODIUM 134 mmol/L (136-145)
[2021-11-20 08:06] LABS: CALCIUM 8.1 mg/dL (8.5-10.1); GLUCOSE,RANDOM 96 mg/dL (74-106)
[2021-11-20 08:07] LABS: ALBUMIN 2.9 g/dl (3.4-5.0); BLOOD UREA NITROGEN 6.2 mg/dL (7-18); CO2 24 mmol/L (21-32)
[2021-11-20 08:11] LABS: BILIRUBIN,TOTAL 0.6 mg/dL (0.2-1); CREATININE 0.7 mg/dL (0.55-1.3); PHOSPHOROUS 1.8 mg/dL (2.5-4.9); SGOT/AST 83 U/L (15-37); SGPT/ALT 49 U/L (13-61)
[2021-11-20 08:12] LABS: ALK PHOS 83 U/L (45-117)
[2021-11-20 08:16] LABS: ANION GAP 10 MMOL/L (8-16)
[2021-11-20] MEDS ORDERED: POTASSIUM CHLORIDE TABS 20 MEQ TABLET.ER (FP) PO ONE (08:38)
[2021-11-20] MEDS: FOLIC ACID 1 MG TABLET (FP) PO SCH (12:28)
[2021-11-20] MEDS: KCL 10 MEQ IVPB 10 MEQ/100 ML INFUS.BAG IVPB SCH ×3 (12:28→18:21)
[2021-11-20] MEDS: PANTOPRAZOLE SODIUM 40 MG VIAL IVPUSH SCH (12:29)
[2021-11-20] MEDS: THIAMINE HCL 200 MG/2 ML VIAL IVPB SCH (12:31)
[2021-11-20 13:43] VITALS: BMI 23.6
[2021-11-20] MEDS: HEPARIN NA (PORCINE) 5,000 UNITS/ML 1ML VIAL SQ SCH ×2 (14:06→21:57)
[2021-11-20 14:09] LABS: ALBUMIN 3.5 g/dl (3.4-5.0); CALCIUM 8.9 mg/dl (8.5-10); CREATININE 0.5 mg/dl (0.55-1.3); MAGNESIUM 1.8 mg/dL (1.8-2.4); PHOSPHOROUS 1.6 mg/dl (2.5-4.9); TOT PROT 6.6 g/dl (6.4-8.2)
[2021-11-20 18:07] LABS: BASO % 0.3 % (0-2.0); EOS % 0.4 % (0-4.5); HEMATOCRIT 34.1 % (32.4-45.2); HEMOGLOBIN 11.2 GM/dL (10.7-15.3); LYMPH % 8.3 % (8-40); MCH 29.9 pg (25.7-33.7); MCHC 32.8 g/dl (32.0-36.0); MEAN PLT VOLUME 9.7 fl (7.5-11.1); MONO % 11.2 % (3.8-10.2); NEUT % 79.8 % (42.8-82.8); PLATELET COUNT 137 10^3/uL (134-434); RBC 3.75 M/mm3 (3.60-5.2); RDW 18.1 % (11.6-15.6); WHITE BLOOD COUNT 5.7 K/mm3 (4.0-10.0)
[2021-11-20] MEDS: NAPH,MB-DB/K PH,MBDB POWDER PACKET PO SCH (21:57)
[2021-11-21] MEDS: HEPARIN NA (PORCINE) 5,000 UNITS/ML 1ML VIAL SQ SCH ×3 (05:39→21:17)
[2021-11-21] MEDS: LORazepam 1 MG TABLET PO SCH ×4 (05:39→22:01)
[2021-11-21 08:50] LABS: ALBUMIN 3.2 g/dl (3.4-5.0); BILIRUBIN,TOTAL 0.8 mg/dl (0.2-1); CALCIUM 8.7 mg/dl (8.5-10); CREATININE 0.5 mg/dl (0.55-1.3); MAGNESIUM 1.8 mg/dL (1.8-2.4); PHOSPHOROUS 3.1 mg/dl (2.5-4.9); TOT PROT 6.4 g/dl (6.4-8.2)
[2021-11-21] MEDS: NAPH,MB-DB/K PH,MBDB POWDER PACKET PO SCH ×2 (09:29→21:21)
[2021-11-21] MEDS: POTASSIUM CHLORIDE TABS 20 MEQ TABLET.ER (FP) PO SCH ×2 (09:29→16:02)
[2021-11-21] MEDS: FOLIC ACID 1 MG TABLET (FP) PO SCH (09:31)
[2021-11-21] MEDS: THIAMINE HCL 200 MG/2 ML VIAL IVPB SCH (09:32)
[2021-11-21] MEDS: SERTRALINE HCL 50 MG TABLET (FP) PO SCH (09:32)
[2021-11-21] MEDS: PANTOPRAZOLE SODIUM 40 MG VIAL IVPUSH SCH (09:32)
[2021-11-21 10:46] LABS: BASO % 0.6 % (0-2.0); EOS % 2.9 % (0-4.5); HEMATOCRIT 33.2 % (32.4-45.2); HEMOGLOBIN 11.3 GM/dL (10.7-15.3); LYMPH % 10.6 % (8-40); MCH 30.6 pg (25.7-33.7); MCHC 34.2 g/dl (32.0-36.0); MEAN CELL VOLUME 89.7 fl (80-96); MEAN PLT VOLUME 9.8 fl (7.5-11.1); MONO % 12.1 % (3.8-10.2); NEUT % 73.8 % (42.8-82.8); PLATELET COUNT 136 10^3/uL (134-434); RDW 17.6 % (11.6-15.6); WHITE BLOOD COUNT 4.2 K/mm3 (4.0-10.0)
[2021-11-21] MEDS ORDERED: ACETAMINOPHEN 325 MG TABLET (FP) PO PRN (17:38)
[2021-11-21] MEDS ORDERED: THIAMINE HCL 100 MG TABLET (FP) PO SCH (22:00)
[2021-11-21] MEDS ORDERED: POTASSIUM CHLORIDE TABS 20 MEQ TABLET.ER (FP) PO ONE (22:00)
[2021-11-22] MEDS ORDERED: LORazepam 0.5 MG TABLET PO PRN
[2021-11-22] MEDS: LORazepam 0.5 MG TABLET PO SCH ×2 (06:44→10:54)
[2021-11-22] MEDS: HEPARIN NA (PORCINE) 5,000 UNITS/ML 1ML VIAL SQ SCH ×2 (06:44→14:13)
[2021-11-22 07:14] VITALS: BP 110/75; PULSE 93; TEMP 98.8
[2021-11-22 08:59] LABS: ALBUMIN 3.5 g/dl (3.4-5.0); BILIRUBIN,TOTAL 0.6 mg/dl (0.2-1); CREATININE 0.5 mg/dl (0.55-1.3); TOT PROT 6.6 g/dl (6.4-8.2)
[2021-11-22] MEDS ORDERED: THIAMINE HCL 100 MG TABLET (FP) PO SCH (10:00)
[2021-11-22] MEDS: FOLIC ACID 1 MG TABLET (FP) PO SCH (10:22)
[2021-11-22] MEDS: NAPH,MB-DB/K PH,MBDB POWDER PACKET PO SCH (10:22)
[2021-11-22] MEDS: SERTRALINE HCL 50 MG TABLET (FP) PO SCH (10:22)
[2021-11-22 13:57] LABS: MAGNESIUM 1.9 mg/dL (1.8-2.4)
[2021-11-23] MEDS ORDERED: LORazepam 0.5 MG TABLET PO ONE (05:00)
== END 2021-11-22 15:16 | disposition home or self-care (01) | DRG 683 ==
LOC: JER 23:03 → JERBED 11-19 06:01 → FM/S 11-19 06:01 → UNDOADMIN 11-19 06:01 → JERBED 11-20 07:40 → FM/S 11-20 07:40 → UNDOADMIN 11-21 08:57 → FM/S 11-21 08:57
PROVIDERS: ADMIT Hospitalist; ATTEND Nurse Practitioner Acute Care
DX: N17.9 Acute kidney failure, unspecified (principal); F10.230 Alcohol dependence with withdrawal, uncomplicated; E87.1 Hypo-osmolality and hyponatremia; D50.9 Iron deficiency anemia, unspecified; E87.6 Hypokalemia; F32.A Depression, unspecified
CPT/HCPCS: 36415; 71045-TC-FY; 76775-TC; 80048; 80053; 80307; 81003; 82570; 82728; 83036; 83615; 83690; 83735; 83935; 84100; 84300; 85025; 85610; 85730; 93005; 93010; 99285-25; C9803; J1644; J2597; U0003; U0005

== ENCOUNTER 2022-09-14 16:28 | Inpatient (IN) | payer OTHER ==
[2022-09-14 16:47] VITALS: BMI 23.6
[2022-09-14] MEDS ORDERED: LORazepam 2 MG/ML SDV VIAL IVPUSH ONE (17:40)
[2022-09-14 18:40] LABS: BASO % 0.7 % (0-2.0); EOS % 0.4 % (0-4.5); HEMATOCRIT 40.6 % (32.4-45.2); HEMOGLOBIN 13.4 GM/dL (10.7-15.3); LYMPH % 29.4 % (8-40); MCH 29.1 pg (25.7-33.7); MCHC 33.1 g/dl (32.0-36.0); MEAN CELL VOLUME 88.1 fl (80-96); MEAN PLT VOLUME 9.4 fl (7.5-11.1); MONO % 3.1 % (3.8-10.2); NEUT % 66.4 % (42.8-82.8); PLATELET COUNT 288 10^3/uL (134-434); RDW 18.4 % (11.6-15.6); WHITE BLOOD COUNT 7.1 K/mm3 (4.0-10.0)
[2022-09-14 19:02] LABS: ALBUMIN 4.6 g/dl (3.4-5.0); BLOOD UREA NITROGEN 3.5 mg/dL (7-18)
[2022-09-14 19:05] LABS: CREATININE 0.5 mg/dL (0.55-1.3)
[2022-09-14 19:07] LABS: BILIRUBIN,TOTAL 0.4 mg/dL (0.2-1); TOT PROT 9.1 g/dl (6.4-8.2)
[2022-09-14] MEDS ORDERED: diazePAM CARPU-JECT 10 MG/2 ML DISP.SYRIN IVPUSH ONE (19:22)
[2022-09-14] MEDS ORDERED: diazePAM CARPU-JECT 10 MG/2 ML DISP.SYRIN ONE (19:24)
[2022-09-14 22:48] LABS: URINE APPEARANCE CLEAR; URINE BILIRUBIN NEGATIVE (NEGATIVE); URINE COLOR YELLOW; URINE GLUCOSE (UA) NEGATIVE (NEGATIVE); URINE KETONE NEGATIVE (NEGATIVE); URINE LEUK ESTERASE NEGATIVE (NEGATIVE); URINE NITRITE NEGATIVE (NEGATIVE); URINE PROTEIN NEGATIVE (NEGATIVE); URINE UROBILINOGEN 0.2 mg/dL (0.2-1.0)
[2022-09-14 22:58] LABS: METHADONE, UR NEGATIVE (NEGATIVE); PHENCYCLIDINE,URINE NEGATIVE (NEGATIVE); URINE BENZODIAZEPINES NEGATIVE (NEGATIVE)
[2022-09-14 22:59] LABS: OPIATES, URI NEGATIVE (NEGATIVE); URINE BARBITURATES NEGATIVE (NEGATIVE)
[2022-09-14 23:00] LABS: COCAINE, UR NEGATIVE (NEGATIVE); URINE AMPHETAMINES NEGATIVE (NEGATIVE)
[2022-09-14] MEDS ORDERED: FOLIC ACID INJECTION - 1 MG, THIAMINE HCL 100 MG, MULTIVIT INJECTION ADULT 10 ML in SOD... IVPB ONE (23:51)
[2022-09-15 00:10] LABS: MAGNESIUM 2.1 mg/dL (1.8-2.4)
[2022-09-15 00:14] LABS: PHOSPHOROUS 3.4 mg/dL (2.5-4.9)
[2022-09-15] MEDS ORDERED: LORazepam 1 MG TABLET PO PRN ×2 (02:05→14:59)
[2022-09-15] MEDS ORDERED: LORazepam 2 MG TABLET PO SCH (05:00)
[2022-09-15] MEDS ORDERED: LORazepam 1 MG TABLET ONE (05:23)
[2022-09-15 07:27] LABS: BASO % 0.4 % (0-2.0); EOS % 0.7 % (0-4.5); HEMOGLOBIN 12.3 GM/dL (10.7-15.3); MCHC 33.2 g/dl (32.0-36.0); MEAN CELL VOLUME 87.5 fl (80-96); MEAN PLT VOLUME 9.3 fl (7.5-11.1); MONO % 4.9 % (3.8-10.2); PLATELET COUNT 228 10^3/uL (134-434); RBC 4.22 M/mm3 (3.60-5.2); RDW 18.3 % (11.6-15.6); WHITE BLOOD COUNT 7.2 K/mm3 (4.0-10.0)
[2022-09-15 07:52] LABS: ALBUMIN 4.1 g/dl (3.4-5.0); CALCIUM 9.4 mg/dL (8.5-10.1)
[2022-09-15 07:53] LABS: MAGNESIUM 1.9 mg/dL (1.8-2.4)
[2022-09-15 07:55] LABS: CREATININE 0.5 mg/dL (0.55-1.3); PHOSPHOROUS 4.3 mg/dL (2.5-4.9)
[2022-09-15 07:56] LABS: BILIRUBIN,TOTAL 0.6 mg/dL (0.2-1)
[2022-09-15] MEDS ORDERED: SODIUM CHLORIDE 1,000 ML IV SCH (08:00)
[2022-09-15] MEDS ORDERED: THIAMINE HCL 100 MG TABLET (FP) ONE (09:20)
[2022-09-15] MEDS ORDERED: ENOXAPARIN NA (PORCINE) 40 MG/0.4 ML DISP.SYRIN SQ ONE (09:20)
[2022-09-15] MEDS ORDERED: FOLIC ACID 1 MG TABLET (FP) ONE (09:20)
[2022-09-15] MEDS ORDERED: THIAMINE HCL 100 MG TABLET (FP) PO SCH (10:00)
[2022-09-15] MEDS ORDERED: ENOXAPARIN NA (PORCINE) 40 MG/0.4 ML DISP.SYRIN SQ SCH (10:00)
[2022-09-15] MEDS ORDERED: FOLIC ACID 1 MG TABLET (FP) PO SCH (10:00)
[2022-09-15] MEDS ORDERED: SODIUM CHLORIDE 1,000 ML IV STA (14:47)
[2022-09-15] MEDS ORDERED: LORazepam 2 MG/ML SDV VIAL IVPUSH ONE (14:48)
[2022-09-16 03:27] VITALS: RESP 16
[2022-09-16] MEDS ORDERED: LORazepam 1 MG TABLET PO SCH (05:00)
[2022-09-16 10:06] VITALS: BP 141/88; PULSE 98; TEMP 97.8
[2022-09-17] MEDS ORDERED: LORazepam 0.5 MG TABLET PO PRN
[2022-09-17] MEDS ORDERED: LORazepam 0.5 MG TABLET PO SCH (05:00)
[2022-09-18] MEDS ORDERED: LORazepam 0.5 MG TABLET PO ONE (05:00)
== END 2022-09-16 10:00 | disposition home or self-care (01) | DRG 775 ==
LOC: JER 16:28 → JERBED 20:48
PROVIDERS: ADMIT Internal Medicine; ATTEND Internal Medicine
PROC: HZ2ZZZZ Detoxification Services for Substance Abuse Treatment (ICD-10-PCS; principal; 2022-09-14)
DX: F10.239 Alcohol dependence with withdrawal, unspecified (principal); R00.0 Tachycardia, unspecified; R50.9 Fever, unspecified; E16.2 Hypoglycemia, unspecified; K76.0 Fatty (change of) liver, not elsewhere classified; R45.1 Restlessness and agitation; R74.01 Elevation of levels of liver transaminase levels; R51.9 Headache, unspecified; F32.A Depression, unspecified
CPT/HCPCS: 36415; 76705-TC; 80053; 80307; 81003; 83735; 84100; 84703; 85025; 86704; 86709; 86803; 87086; 87340; 87517; 93005; 93010; 99285-25; C9803-CS; U0003; U0005

== ENCOUNTER 2022-09-25 16:51 | Inpatient (IN) | payer OTHER ==
[2022-09-25 17:50] VITALS: BMI 20.5
[2022-09-25] MEDS ORDERED: ONDANSETRON *ODT* 4 MG TABLET SL PRN (19:50)
[2022-09-25] MEDS ORDERED: DICYCLOMINE HCL 10 MG CAPSULE PO PRN (19:50)
[2022-09-25] MEDS ORDERED: MAG HYDROX/AL HYDROX/SIMETH 30 ML UNIT-DOSE CUP PO PRN (19:50)
[2022-09-25] MEDS ORDERED: BISMUTH SUBSALICYLATE 524 MG/30 ML PO PRN (19:50)
[2022-09-25] MEDS ORDERED: guaiFENesin 200 MG/10 ML 10 ML UNIT-DOSE CUPS PO PRN (19:50)
[2022-09-25] MEDS ORDERED: POLYETHYLENE GLYCOL (HEALTHYLAX) 3350 17 GM PACKET PO PRN (19:50)
[2022-09-25] MEDS ORDERED: LOPERAMIDE HCL 2 MG CAPSULE PO PRN (19:50)
[2022-09-25] MEDS ORDERED: MAGNESIUM HYDROX 2400MG/30ML ORAL SUSPENSION 30 ML CUP PO PRN (19:50)
[2022-09-25] MEDS ORDERED: ACETAMINOPHEN 325 MG TABLET (FP) PO PRN ×2 (19:50)
[2022-09-25] MEDS ORDERED: P-EPHED 60MG/TRIPROLIDI 2.5MG TABLET PO PRN (19:50)
[2022-09-25] MEDS ORDERED: IBUPROFEN 400 MG TABLET (FP) PO PRN (19:50)
[2022-09-25] MEDS ORDERED: hydrOXYzine PAMOATE 25 MG CAPSULE (FP) PO PRN (19:50)
[2022-09-25] MEDS ORDERED: diazePAM 5 MG TABLET PO PRN (19:51)
[2022-09-25] MEDS: diazePAM 5 MG TABLET PO SCH (22:13)
[2022-09-25] MEDS: METHOCARBAMOL 500 MG TABLET PO PRN (22:13)
[2022-09-25] MEDS: THIAMINE HCL 100 MG TABLET (FP) PO SCH (22:13)
[2022-09-26] MEDS: diazePAM 5 MG TABLET PO SCH ×4 (05:45→22:51)
[2022-09-26] MEDS: IBUPROFEN 600 MG TABLET (FP) PO PRN (08:51)
[2022-09-26] MEDS: PRENATAL VITAMINS W/ FOLIC ACID TABLET (FP) PO SCH (10:05)
[2022-09-26 11:12] LABS: HEMATOCRIT 37.2 % (32.4-45.2); HEMOGLOBIN 12.5 GM/dL (10.7-15.3); MCHC 33.5 g/dl (32.0-36.0); MEAN CELL VOLUME 89.5 fl (80-96); MEAN PLT VOLUME 8.9 fl (7.5-11.1); PLATELET COUNT 331 10^3/uL (134-434); RBC 4.15 M/mm3 (3.60-5.2); RDW 19.5 % (11.6-15.6)
[2022-09-26 11:30] LABS: CHLORIDE 97 mmol/L (98-107); SODIUM 137 mmol/L (136-145)
[2022-09-26 11:53] LABS: ALBUMIN 4.3 g/dl (3.4-5.0)
[2022-09-26 11:55] LABS: ANION GAP 13 MMOL/L (8-16); CALCIUM 9.8 mg/dL (8.5-10.1); CO2 28 mmol/L (21-32); GLUCOSE,RANDOM 118 mg/dL (74-106)
[2022-09-26 11:56] LABS: CREATININE 0.7 mg/dL (0.55-1.3); SGOT/AST 92 U/L (15-37); SGPT/ALT 61 U/L (13-61)
[2022-09-26 11:58] LABS: BILIRUBIN,TOTAL 0.6 mg/dL (0.2-1); TOT PROT 8.6 g/dl (6.4-8.2)
[2022-09-26 12:01] LABS: ALK PHOS 162 U/L (45-117); BLOOD UREA NITROGEN 2.9 mg/dL (7-18)
[2022-09-26] MEDS: hydrOXYzine PAMOATE 25 MG CAPSULE (FP) PO PRN ×2 (17:36→22:50)
[2022-09-26] MEDS: METHOCARBAMOL 500 MG TABLET PO PRN (17:37)
[2022-09-26] MEDS: MELATONIN 5 MG TABLETS PO PRN (22:50)
[2022-09-26] MEDS: THIAMINE HCL 100 MG TABLET (FP) PO SCH (22:50)
[2022-09-27] MEDS: diazePAM 5 MG TABLET PO SCH ×3 (05:26→22:09)
[2022-09-27] MEDS: BENZOCAINE/MENTHOL (CHLORASEPTIC ) LOZENGE MM PRN ×2 (08:17→22:13)
[2022-09-27] MEDS: PRENATAL VITAMINS W/ FOLIC ACID TABLET (FP) PO SCH (10:39)
[2022-09-27] MEDS: IBUPROFEN 600 MG TABLET (FP) PO PRN ×2 (10:40→22:09)
[2022-09-27] MEDS: METHOCARBAMOL 500 MG TABLET PO PRN (10:40)
[2022-09-27 10:41] LABS: ALBUMIN 3.8 g/dl (3.4-5.0); CALCIUM 9.7 mg/dL (8.5-10.1)
[2022-09-27 10:42] LABS: BLOOD UREA NITROGEN 3.6 mg/dL (7-18)
[2022-09-27 10:45] LABS: CREATININE 0.6 mg/dL (0.55-1.3)
[2022-09-27 10:46] LABS: BILIRUBIN,TOTAL 0.6 mg/dL (0.2-1); TOT PROT 7.9 g/dl (6.4-8.2)
[2022-09-27] MEDS: AMOXICILLIN 500 MG CAPSULE (FP) PO SCH ×2 (14:12→22:08)
[2022-09-27] MEDS: ARTIFICIAL TEARS (POLYVINYL ALCOHOL) OPTH DROPS OU SCH ×2 (14:12→22:09)
[2022-09-27] MEDS: THIAMINE HCL 100 MG TABLET (FP) PO SCH (22:08)
[2022-09-28] MEDS: AMOXICILLIN 500 MG CAPSULE (FP) PO SCH ×3 (05:48→22:34)
[2022-09-28] MEDS: diazePAM 5 MG TABLET PO SCH ×2 (05:48→17:37)
[2022-09-28] MEDS: ARTIFICIAL TEARS (POLYVINYL ALCOHOL) OPTH DROPS OU SCH ×3 (05:51→22:34)
[2022-09-28] MEDS: PRENATAL VITAMINS W/ FOLIC ACID TABLET (FP) PO SCH (09:47)
[2022-09-28] MEDS: METHOCARBAMOL 500 MG TABLET PO PRN ×2 (09:47→22:34)
[2022-09-28] MEDS: IBUPROFEN 600 MG TABLET (FP) PO PRN (09:47)
[2022-09-28] MEDS: hydrOXYzine PAMOATE 25 MG CAPSULE (FP) PO PRN (17:38)
[2022-09-28] MEDS: MELATONIN 5 MG TABLETS PO PRN (22:33)
[2022-09-28] MEDS: THIAMINE HCL 100 MG TABLET (FP) PO SCH (22:33)
[2022-09-29] MEDS: AMOXICILLIN 500 MG CAPSULE (FP) PO SCH (05:43)
[2022-09-29] MEDS: ARTIFICIAL TEARS (POLYVINYL ALCOHOL) OPTH DROPS OU SCH (05:45)
[2022-09-29] MEDS ORDERED: diazePAM 5 MG TABLET PO ONE (06:00)
[2022-09-29] MEDS: BENZOCAINE/MENTHOL (CHLORASEPTIC ) LOZENGE MM PRN (06:02)
[2022-09-29 06:29] VITALS: TEMP 97.8
[2022-09-29 09:18] VITALS: BP 112/70; PULSE 85; RESP 18
== END 2022-09-29 10:30 | disposition home or self-care (01) | DRG 775 ==
LOC: YASAS 16:51 → Y6N 19:41
PROVIDERS: ADMIT Allergy & Immunology; ATTEND Surgery
PROC: HZ2ZZZZ Detoxification Services for Substance Abuse Treatment (ICD-10-PCS; principal; 2022-09-25)
DX: F10.230 Alcohol dependence with withdrawal, uncomplicated (principal); F10.220 Alcohol dependence with intoxication, uncomplicated; J03.90 Acute tonsillitis, unspecified; D25.9 Leiomyoma of uterus, unspecified; Z86.2 Personal history of diseases of the blood and blood-forming organs and certain disorders involving the immune mechanism
CPT/HCPCS: 36415; 80053; 81025; 85027; 86780; C9803-CS; U0003; U0005

== ENCOUNTER 2022-11-22 15:12 | Emergency (ER) | payer OTHER ==
[2022-11-22 15:52] VITALS: BP 125/84; PULSE 76; RESP 18; TEMP 98.1; BMI 23.6
== END 2022-11-22 17:25 | disposition left against medical advice (07) ==
LOC: JER 15:12
DX: F10.120 Alcohol abuse with intoxication, uncomplicated (principal)
CPT/HCPCS: 99281-25

== ENCOUNTER 2022-12-17 13:05 | Emergency (ER) | payer OTHER ==
[2022-12-17 13:31] VITALS: BP 108/53; PULSE 84; RESP 18; TEMP 98.1; BMI 23.6
== END 2022-12-17 14:40 | disposition home or self-care (01) ==
LOC: JER 13:05 → JERFT 13:05
DX: Z48.02 Encounter for removal of sutures (principal)
CPT/HCPCS: 99281-25

== ENCOUNTER 2023-02-01 11:02 | Emergency (ER) | payer OTHER ==
[2023-02-01 11:20] VITALS: RESP 18; TEMP 98.5; BMI 19.6
[2023-02-01] MEDS ORDERED: SODIUM CHLORIDE 0.9% 500 ML INFUS.BAG IV ONE (13:28)
[2023-02-01] MEDS ORDERED: ACETAMINOPHEN 1000 MG/100 ML BAG IVPB ONE (13:30)
[2023-02-01] MEDS ORDERED: FAMOTIDINE 20 MG/50 ML IVPB 20 MG/50 ML MG IVPB ONE ×2 (13:30→13:52)
[2023-02-01 13:52] LABS: EPI CELLS 16 /uL (0-25.1); HYALINE CASTS 0 /uL (0-3.1); URINE APPEARANCE CLEAR; URINE BACTERIA 221 /uL (0-1359); URINE BILIRUBIN NEGATIVE (NEGATIVE); URINE COLOR YELLOW; URINE GLUCOSE (UA) NEGATIVE (NEGATIVE); URINE KETONE TRACE (NEGATIVE); URINE LEUK ESTERASE NEGATIVE (NEGATIVE); URINE NITRITE NEGATIVE (NEGATIVE); URINE PROTEIN TRACE (NEGATIVE); URINE RBC 27 /uL (0-23.9); URINE UROBILINOGEN 0.2 mg/dL (0.2-1.0); URINE WBC 6 /uL (0-25.8)
[2023-02-01] MEDS ORDERED: ACETAMINOPHEN INJECTION 100 ML IVPB ONE (13:52)
[2023-02-01 13:59] LABS: VENOUS BASE EXCESS 4.3 mmol/L (-2-2); VENOUS O2 SATURATION 91.9 % (70-80); VENOUS PCO2 44.9 mmHg (38-52); VENOUS PH 7.432 (7.310-7.410)
[2023-02-01 14:01] LABS: BASO % 1.5 % (0-2.0); EOS % 1.1 % (0-4.5); HEMATOCRIT 39.2 % (32.4-45.2); HEMOGLOBIN 13.5 GM/dL (10.7-15.3); LYMPH % 44.3 % (8-40); MCH 29.7 pg (25.7-33.7); MCHC 34.5 g/dl (32.0-36.0); MEAN CELL VOLUME 86.2 fl (80-96); MEAN PLT VOLUME 9.4 fl (7.5-11.1); MONO % 8.4 % (3.8-10.2); NEUT % 44.7 % (42.8-82.8); PLATELET COUNT 154 10^3/uL (134-434); RBC 4.55 M/mm3 (3.60-5.2); RDW 18.3 % (11.6-15.6); WHITE BLOOD COUNT 3.7 K/mm3 (4.0-10.0)
[2023-02-01 14:09] LABS: INR 0.91 (0.83-1.09); PROTHROMBIN TIME (PATIENT) 10.6 SEC (9.7-13.0)
[2023-02-01 14:11] LABS: ACTIVATED PTT 33.8 SECONDS (25.2-36.5)
[2023-02-01 14:18] LABS: CALCIUM 9.5 mg/dL (8.5-10.1)
[2023-02-01 14:19] LABS: ALBUMIN 4.5 g/dl (3.4-5.0); BLOOD UREA NITROGEN 5.7 mg/dL (7-18)
[2023-02-01 14:22] LABS: CREATININE 0.6 mg/dL (0.55-1.3)
[2023-02-01 14:24] LABS: BILIRUBIN,TOTAL 0.5 mg/dL (0.2-1); TOT PROT 8.6 g/dl (6.4-8.2)
[2023-02-01] MEDS ORDERED: LACTATED RINGERS SOLUTION 1000 ML INFUS.BAG IV ONE ×3 (15:16→19:02)
[2023-02-01 16:05] VITALS: BP 110/70; PULSE 63
[2023-02-01] MEDS ORDERED: FOLIC ACID 1 MG TABLET (FP) PO ONE (16:14)
[2023-02-01] MEDS ORDERED: FOLIC ACID 1 MG TABLET (FP) ONE (16:41)
[2023-02-01] MEDS ORDERED: THIAMINE HCL 100 MG TABLET (FP) ONE (16:41)
[2023-02-01 20:16] LABS: LACTIC ACID 4.2 mmol/L (0.4-2.0)
[2023-02-02] MEDS ORDERED: THIAMINE HCL 100 MG TABLET (FP) PO SCH (10:00)
== END 2023-02-01 21:44 | disposition left against medical advice (07) ==
LOC: JER 11:02
PROC: 3E033GC Introduction of Other Therapeutic Substance into Peripheral Vein, Percutaneous Approach (ICD-10-PCS; principal; 2023-02-01)
DX: R10.11 Right upper quadrant pain (principal)
CPT/HCPCS: 0241U-QW; 36415; 71045-TC-FY; 74177-TC; 76705-TC; 80053; 80307; 81003; 82803; 83605; 83690; 83735; 84484; 84703; 85025; 85610; 85730; 86850; 86870; 86900; 86901; 86902; 93005; 93010; 99285-25; Q9967

== ENCOUNTER 2023-03-31 14:52 | Emergency (ER) | payer OTHER ==
[2023-03-31 15:02] VITALS: RESP 20; TEMP 97.9; BMI 22.6
[2023-03-31] MEDS ORDERED: LACTATED RINGERS SOLUTION 1000 ML INFUS.BAG IV ONE ×2 (15:23→18:17)
[2023-03-31 15:55] LABS: EOS % 0.4 % (0-4.5); HEMATOCRIT 38.7 % (32.4-45.2); HEMOGLOBIN 12.8 GM/dL (10.7-15.3); LYMPH % 34.8 % (8-40); MCHC 33.1 g/dl (32.0-36.0); MEAN CELL VOLUME 84.6 fl (80-96); MEAN PLT VOLUME 8.9 fl (7.5-11.1); MONO % 5.7 % (3.8-10.2); NEUT % 58.1 % (42.8-82.8); PLATELET COUNT 347 10^3/uL (134-434); RBC 4.57 M/mm3 (3.60-5.2); RDW 16.2 % (11.6-15.6)
[2023-03-31 16:12] LABS: POTASSIUM 3.9 mmol/L (3.5-5.1)
[2023-03-31 16:16] LABS: ALBUMIN 3.6 g/dl (3.4-5.0); BLOOD UREA NITROGEN 8.3 mg/dL (7-18); CALCIUM 8.4 mg/dL (8.5-10.1); MAGNESIUM 2.3 mg/dL (1.8-2.4)
[2023-03-31 16:18] LABS: CREATININE 0.5 mg/dL (0.55-1.3); PHOSPHOROUS 4.1 mg/dL (2.5-4.9)
[2023-03-31 16:20] LABS: BILIRUBIN,TOTAL 0.3 mg/dL (0.2-1); TOT PROT 7.4 g/dl (6.4-8.2)
[2023-03-31 18:20] VITALS: BP 130/95; PULSE 103
== END 2023-03-31 18:27 | disposition home or self-care (01) ==
LOC: JER 14:52
DX: R07.9 Chest pain, unspecified (principal); F10.129 Alcohol abuse with intoxication, unspecified
CPT/HCPCS: 36415; 71045-TC-FY; 80053; 80307; 83735; 84100; 84484; 85025; 93005; 93010; 99285-25

== ENCOUNTER 2023-04-18 23:52 | Emergency (ER) | payer OTHER ==
[2023-04-19 00:03] VITALS: TEMP 98.2; BMI 19.8
[2023-04-19] MEDS ORDERED: SODIUM CHLORIDE 0.9% 500 ML INFUS.BAG IV ONE (00:38)
[2023-04-19] MEDS ORDERED: METOCLOPRAMIDE HCL INJECTION 10 MG/2 ML VIAL IVPUSH ONE (00:38)
[2023-04-19] MEDS ORDERED: ACETAMINOPHEN 1000 MG/100 ML BAG IVPB ONE (00:38)
[2023-04-19] MEDS ORDERED: METOCLOPRAMIDE HCL INJECTION 10 MG/2 ML VIAL ONE (00:49)
[2023-04-19] MEDS ORDERED: ACETAMINOPHEN INJECTION 100 ML IVPB ONE (00:49)
[2023-04-19 01:18] LABS: EOS % 0.4 % (0-4.5); HEMATOCRIT 37.5 % (32.4-45.2); HEMOGLOBIN 12.7 GM/dL (10.7-15.3); LYMPH % 37.5 % (8-40); MCH 29.1 pg (25.7-33.7); MCHC 33.7 g/dl (32.0-36.0); MEAN CELL VOLUME 86.3 fl (80-96); NEUT % 52.1 % (42.8-82.8); PLATELET COUNT 244 10^3/uL (134-434); RBC 4.35 M/mm3 (3.60-5.2); RDW 17.2 % (11.6-15.6)
[2023-04-19 01:44] LABS: POTASSIUM 3.4 mmol/L (3.5-5.1)
[2023-04-19 01:46] LABS: CALCIUM 8.3 mg/dL (8.5-10.1)
[2023-04-19 01:47] LABS: ALBUMIN 3.2 g/dl (3.4-5.0); BLOOD UREA NITROGEN 10.3 mg/dL (7-18); MAGNESIUM 1.9 mg/dL (1.8-2.4)
[2023-04-19 01:49] LABS: CREATININE 0.5 mg/dL (0.55-1.3)
[2023-04-19 01:51] LABS: BILIRUBIN,TOTAL 0.5 mg/dL (0.2-1)
[2023-04-19 06:41] VITALS: BP 95/68; PULSE 78; RESP 16
== END 2023-04-19 07:42 | disposition home or self-care (01) ==
LOC: JER 23:52
PROC: 3E033NZ Introduction of Analgesics, Hypnotics, Sedatives into Peripheral Vein, Percutaneous Approach (ICD-10-PCS; principal; 2023-04-19)
PROC: 3E033GC Introduction of Other Therapeutic Substance into Peripheral Vein, Percutaneous Approach (ICD-10-PCS; 2023-04-19)
DX: R11.2 Nausea with vomiting, unspecified (principal); R51.9 Headache, unspecified; R07.9 Chest pain, unspecified; R10.9 Unspecified abdominal pain; Z00.01 Encounter for general adult medical examination with abnormal findings
CPT/HCPCS: 36415; 80053; 80307; 83735; 84484; 85025; 93005; 93010; 99284-25

== ENCOUNTER 2023-05-07 04:31 | Day surgery (SDC) | payer OTHER ==
[2023-05-03 15:05] VITALS: BMI 20.4
[2023-05-07] MEDS ORDERED: SIMETHICONE 40 MG/0.6 ML BOTTLE ONE (07:33)
[2023-05-07 09:08] VITALS: PULSE 56
[2023-05-07 09:20] VITALS: BP 107/63; RESP 15; TEMP 98.1
== END 2023-05-07 09:15 | disposition home or self-care (01) ==
LOC: JASU-ENDO 04:31
PROVIDERS: ATTEND Internal Medicine Gastroenterology
PROC: 0DJD8ZZ Inspection of Lower Intestinal Tract, Via Natural or Artificial Opening Endoscopic (ICD-10-PCS; principal; 2023-05-07 08:00)
DX: Z12.11 Encounter for screening for malignant neoplasm of colon (principal); K57.30 Diverticulosis of large intestine without perforation or abscess without bleeding; K64.8 Other hemorrhoids; D64.9 Anemia, unspecified
CPT/HCPCS: 81025

== ENCOUNTER 2023-10-12 21:09 | Emergency (ER) | payer SELFPAY ==
[2023-10-12 21:27] VITALS: BMI 22.6
[2023-10-12] MEDS ORDERED: chlordiazePOXIDE HCL 25 MG CAPSULE PO ONE (22:17)
[2023-10-12 22:49] LABS: BASO % 0.7 % (0-2.0); EOS % 0.1 % (0-4.5); HEMATOCRIT 37.9 % (32.4-45.2); HEMOGLOBIN 12.8 GM/dL (10.7-15.3); LYMPH % 27.8 % (8-40); MCH 29.2 pg (25.7-33.7); MCHC 33.8 g/dl (32.0-36.0); MEAN CELL VOLUME 86.5 fl (80-96); MEAN PLT VOLUME 8.8 fl (7.5-11.1); MONO % 5.3 % (3.8-10.2); NEUT % 66.1 % (42.8-82.8); PLATELET COUNT 294 10^3/uL (134-434); RBC 4.38 M/mm3 (3.60-5.2); RDW 15.1 % (11.6-15.6); WHITE BLOOD COUNT 5.7 K/mm3 (4.0-10.0)
[2023-10-12] MEDS ORDERED: chlordiazePOXIDE HCL 25 MG CAPSULE ONE (22:54)
[2023-10-12] MEDS ORDERED: diphenhydrAMINE HCL 25 MG CAPSULE (FP) PO ONE ×2 (23:01→23:06)
[2023-10-12 23:09] LABS: POTASSIUM 3.3 mmol/L (3.5-5.1)
[2023-10-12 23:11] LABS: ALBUMIN 3.9 g/dl (3.4-5.0); BLOOD UREA NITROGEN 5.6 mg/dL (7-18); CALCIUM 8.7 mg/dL (8.5-10.1)
[2023-10-12 23:14] LABS: CREATININE 0.6 mg/dL (0.55-1.3)
[2023-10-12 23:16] LABS: BILIRUBIN,TOTAL 0.3 mg/dL (0.2-1); TOT PROT 7.6 g/dl (6.4-8.2)
[2023-10-12 23:34] LABS: COCAINE, UR NEGATIVE (NEGATIVE); METHADONE, UR NEGATIVE (NEGATIVE); OPIATES, URI NEGATIVE (NEGATIVE); PHENCYCLIDINE,URINE NEGATIVE (NEGATIVE); URINE AMPHETAMINES NEGATIVE (NEGATIVE); URINE BARBITURATES NEGATIVE (NEGATIVE); URINE BENZODIAZEPINES NEGATIVE (NEGATIVE)
[2023-10-12] MEDS ORDERED: MAGNESIUM SULFATE IN WATER 2 GM/50 ML IVPB IVPB ONE (23:38)
[2023-10-12] MEDS ORDERED: POTASSIUM CHLORIDE TABS 20 MEQ TABLET.ER (FP) PO ONE (23:38)
[2023-10-13] MEDS ORDERED: MAGNESIUM SULFATE IN WATER 2 GM/50 ML IVPB IVPB ONE (00:33)
[2023-10-13] MEDS ORDERED: POTASSIUM CHLORIDE TABS 20 MEQ TABLET.ER (FP) PO ONE (00:33)
[2023-10-13] MEDS ORDERED: LACTATED RINGERS SOLUTION 1000 ML INFUS.BAG IV ONE (04:37)
[2023-10-13 11:23] VITALS: RESP 18
[2023-10-13] MEDS ORDERED: SODIUM CHLORIDE 0.9% 500 ML INFUS.BAG IV ONE (11:32)
[2023-10-13] MEDS ORDERED: chlordiazePOXIDE HCL 25 MG CAPSULE PO ONE (11:33)
[2023-10-13] MEDS ORDERED: chlordiazePOXIDE HCL 25 MG CAPSULE ONE (11:44)
[2023-10-13 13:47] VITALS: BP 110/70; PULSE 98; TEMP 98.8
== END 2023-10-13 13:55 | disposition home or self-care (01) ==
LOC: JER 21:09
PROC: 3E033GC Introduction of Other Therapeutic Substance into Peripheral Vein, Percutaneous Approach (ICD-10-PCS; principal; 2023-10-13)
DX: R45.851 Suicidal ideations (principal)
CPT/HCPCS: 36415; 71045-TC-FY; 80053; 80307; 85025; 99284-25